=== PATIENT | female | born 1970 | race Caucasian/White ===

== ENCOUNTER 2016-12-06 05:16 | Day surgery (SDC) | payer BC ==
[~2016-12-06] VITALS: Ht 162.6 cm; Wt 113.4 kg
[~2016-12-06 05:16] MED LIST: CITALOPRAM HBR20 MG PO; CLONAZEPAM0.5 MG PO; COLACE100 MG PO; CYTOTEC200 MCG PO; DIOVAN HCT 31 TABLET PO; FIORICET 50-301 EACH PO; LIPITOR40 MG PO; METOPROLOL TART25 MG PO; MICROZIDE12.5 M1 PO; NAPROSYN500 MG PO; OMEPRAZOLE40 M1 PO; POTASSIUM CHLO10 ME3 PO; REGLAN5 MG PO; SENOKOT,SENN1 TABLET PO; ZANTAC150 M1 PO
[2016-12-06 06:04] VITALS: BP 119/63
[2016-12-06] MEDS ORDERED: ENDOCET 5-3251 EACH PO (09:43)
[2016-12-06] MEDS ORDERED: IBUPROFEN800 MG PO (09:43)
[2016-12-06 12:08] VITALS: BP 104/59
[2016-12-06 13:04] VITALS: BP 114/67
[2016-12-06 14:45] VITALS: BP 133/63
== END 2016-12-06 14:35 | disposition home or self-care (01) ==
LOC: SDC 05:16
DX: N92.0 Excessive and frequent menstruation with regular cycle (principal); N80.0 Endometriosis of uterus; N80.3 Endometriosis of pelvic peritoneum; D25.9 Leiomyoma of uterus, unspecified; D27.0 Benign neoplasm of right ovary; N94.6 Dysmenorrhea, unspecified; G89.29 Other chronic pain; R10.2 Pelvic and perineal pain; N13.5 Crossing vessel and stricture of ureter without hydronephrosis; N80.1 Endometriosis of ovary; I10 Essential (primary) hypertension; E66.01 Morbid (severe) obesity due to excess calories; Z68.41 Body mass index [BMI] 40.0-44.9, adult; Z80.42 Family history of malignant neoplasm of prostate
CPT/HCPCS: 88307; J0330; J0690; J1100; J1170; J1885; J2405; J2710; J2765; J3010; Q0175